=== PATIENT | female | born 1945 | race Caucasian/White ===

== ENCOUNTER → 2017-05-06 | Outpatient (CLI) | payer MEDICARE, BC ==
[~2017-05-06] MED LIST: NO HOME MEDICATIONS
== END ==
LOC: MC.RAD 10:15
DX: Z12.31 Encounter for screening mammogram for malignant neoplasm of breast (principal)

== ENCOUNTER → 2018-05-19 | Outpatient (CLI) | payer MEDICARE, BC | LOC: MC.RAD 09:40 | DX: Z12.31 Encounter for screening mammogram for malignant neoplasm of breast (principal) ==

== ENCOUNTER → 2019-05-23 | Outpatient (CLI) | payer MEDICARE, BC | LOC: MC.RAD 10:21 | DX: Z12.31 Encounter for screening mammogram for malignant neoplasm of breast (principal) ==

== ENCOUNTER → 2020-05-24 | Outpatient (CLI) | payer MEDICARE, BC | LOC: MC.RAD 08:36 | DX: Z12.31 Encounter for screening mammogram for malignant neoplasm of breast (principal) ==

== ENCOUNTER 2020-06-19 21:51 | Observation (INO) | payer MEDICARE, BC ==
[~2020-06-19] VITALS: Ht 162.6 cm; Wt 77.0 kg
[2020-06-19] MEDS ORDERED: STRATTERA 10MG10 MG PO (21:57)
[2020-06-19] MEDS ORDERED: LIPITOR 10MG10 MG PO (22:09)
[2020-06-19] MEDS ORDERED: VITAMIN B12 781 TAB PO (22:10)
[2020-06-19] MEDS ORDERED: VITAMIN D3400 I1 PO (22:10)
[2020-06-19] MEDS ORDERED: VTAMINC250TA (22:10)
[2020-06-19 22:41] LABS: COLLECTION METHOD CLEAN CATCH
[2020-06-19 22:47] LABS: MUCOUS Present /lpf; PH 6 (5-8); URINE APPEARANCE Hazy; URINE BACTERIA Rare /hpf; URINE BILIRUBIN Negative (NEGATIVE); URINE BLOOD Negative (NEGATIVE); URINE COLOR Yellow; URINE GLUCOSE Negative (NEGATIVE); URINE KETONE Negative (NEGATIVE); URINE LEUKOCYTE ESTERASE 2+ (NEGATIVE); URINE NITRATE Negative (NEGATIVE); URINE PROTEIN(semi-quant) Negative (NEGATIVE); URINE UROBILINOGEN Negative (NEGATIVE)
[2020-06-19 23:01] LABS: BASO % 0.2 % (0.0-2.0); EOS # 0.1 (0.0-0.7); EOS % 0.6 % (0-4.0); GRAN # 13.7 (1.4-6.5); HEMATOCRIT 40.8 % (37.0-47.0); HEMOGLOBIN 13.6 g/dl (12.5-16.0); LYMPH # 2.4 (1.2-3.4); LYMPH % 13.7 % (20.0-51.0); MEAN CELL VOLUME 95 fl (80.0-100.0); MEAN CORPUSCULAR HEMOGLOBIN 32 pg (27.0-31.0); MEAN CORPUSCULAR HGB CONC 33 g/dl (33.0-37.0); MEAN PLATELET VOLUME 10.7 fl (7.4-10.4); MONO # 1.1 (0.1-0.6); MONO % 6.2 % (1.7-9.3); PLATELET COUNT 259 K/mm3 (130-400)
[2020-06-19 23:20] LABS: ALBUMIN 4.5 gm/dL (3.5-5.0); BILIRUBIN,TOTAL 0.7 mg/dL (0.0-1.0); CALCIUM 9.7 mg/dL (8.4-10.2); CREATININE, serum 1.05 (0.52-1.25); POTASSIUM 4.2 mmol/L (3.4-5.0); TOTAL PROTEIN 8.3 gm/dL (6.4-8.2)
[2020-06-20] VITALS (10 sets, daily range): BP systolic 111–135; BP diastolic 38–61; PULSE 70–92; TEMP 97.4–99.1
[2020-06-21 01:01] VITALS: BP 100/58; PULSE 69; TEMP 98.6
[2020-06-21 04:00] VITALS: BP 107/91; PULSE 73; TEMP 97.8
[2020-06-21 07:35] LABS: BASO % 0.2 % (0.0-2.0); GRAN # 9.9 (1.4-6.5); LYMPH # 1.5 (1.2-3.4); LYMPH % 12.3 % (20.0-51.0); MEAN CELL VOLUME 95 fl (80.0-100.0); MEAN CORPUSCULAR HGB CONC 34 g/dl (33.0-37.0); MEAN PLATELET VOLUME 11.2 fl (7.4-10.4); MONO # 0.5 (0.1-0.6); MONO % 4.1 % (1.7-9.3); PLATELET COUNT 218 K/mm3 (130-400); RED BLOOD COUNT 3.64 M/mm3 (4.10-5.30); REDCELL DISTRIBUTION WIDTH-CV 12.7 % (11.5-14.5)
[2020-06-21 07:41] LABS: HEMATOCRIT 34.5 % (37.0-47.0); HEMOGLOBIN 11.6 g/dl (12.5-16.0); MEAN CORPUSCULAR HEMOGLOBIN 32 pg (27.0-31.0)
[2020-06-21 07:55] LABS: CALCIUM 8.4 mg/dL (8.4-10.2); CREATININE, serum 0.9 (0.52-1.25); POTASSIUM 3.5 mmol/L (3.4-5.0)
[2020-06-21 08:12] VITALS: BP 127/58; PULSE 65; TEMP 98
[2020-06-21] MEDS ORDERED: FLAGYL500 MG PO (11:09)
[2020-06-21] MEDS ORDERED: AMOXICILLIN 8751 TAB PO (11:09)
[2020-06-21] MEDS ORDERED: ULTRAM 50MG TAB50 MG PO (11:10)
== END 2020-06-21 12:41 | disposition home or self-care (01) ==
LOC: COL.ER 21:51 → SURG 06-20 01:31
PROVIDERS: Nurse Practitioner Primary Care; ADMIT Surgery
DX: K35.80 Unspecified acute appendicitis (principal); E78.5 Hyperlipidemia, unspecified; Z90.710 Acquired absence of both cervix and uterus; Z87.891 Personal history of nicotine dependence; Z79.899 Other long term (current) drug therapy
CPT/HCPCS: G0378; J0690; J1100; J1170; J2405; J2543; J2704; J3010; J7030; J7120; Q9967

== ENCOUNTER → 2021-06-05 | Outpatient (CLI) | payer MEDICARE, BC ==
[~2021-06-05] MED LIST changes: +AMOXICILLIN 8751 TAB PO; +FLAGYL500 MG PO; +LIPITOR 10MG10 MG PO; +STRATTERA 10MG10 MG PO; +ULTRAM 50MG TAB50 MG PO; +VITAMIN B12 781 TAB PO; +VITAMIN D3400 I1 PO; +VTAMINC250TA
== END ==
LOC: MC.RAD 09:45
DX: Z12.31 Encounter for screening mammogram for malignant neoplasm of breast (principal)

== ENCOUNTER → 2022-06-10 | Outpatient (CLI) | payer MEDICARE, BC | LOC: MC.RAD 13:15 | DX: Z12.31 Encounter for screening mammogram for malignant neoplasm of breast (principal) ==

== ENCOUNTER → 2024-07-25 | Outpatient (CLI) | payer MEDICARE, BC | LOC: MC.RAD 13:11 | DX: Z12.31 Encounter for screening mammogram for malignant neoplasm of breast (principal) ==